=== PATIENT | male | born 1995 | race Caucasian/White ===

== ENCOUNTER 2022-03-25 12:55 | Inpatient (IN) | payer MEDICAID, OTHER ==
[~2022-03-25] VITALS: Ht 170.2 cm; Wt 59.1 kg
[~2022-03-25 12:55] MED LIST: AZIT-104 PO; RISP2TAB86 PO
[2022-03-25] MEDS ORDERED: HALOPERIDOL 5 MG TABLET PO ONE (15:00)
[2022-03-25] MEDS ORDERED: DiphenhydrAMINE HCL 50 MG CAPSULE PO ONE (15:00)
[2022-03-25] MEDS ORDERED: LORazepam 2 MG TABLET PO ONE (15:00)
[2022-03-25 15:28] LABS: AMPHET/METH SCREEN,URINE POSITIVE (NEGATIVE); BARBITURATE SCREEN, URINE NEGATIVE (NEGATIVE); BENZODIAZEPINES SCREEN,URINE NEGATIVE (NEGATIVE); CANNABINOID SCREEN,URINE POSITIVE (NEGATIVE); COCAINE SCREEN,URINE POSITIVE (NEGATIVE); METHADONE SCREEN, URINE NEGATIVE (NEGATIVE); OPIATE SCREEN,URINE NEGATIVE (NEGATIVE)
[2022-03-25 15:29] LABS: PHENCYCLIDINE SCREEN,URINE NEGATIVE (NEGATIVE)
[2022-03-25] MEDS ORDERED: LORazepam 2 MG TABLET PO PRN (15:45)
[2022-03-25] MEDS ORDERED: ZOLPIDEM TARTRATE 10 MG TABLET PO PRN (15:45)
[2022-03-25] MEDS ORDERED: HALOPERIDOL 5 MG TABLET PO PRN (15:45)
[2022-03-25 16:31] LABS: COVID AG,FIA SOURCE NASOPHARYNGEAL
[2022-03-25 16:32] LABS: BASOPHILS % (AUTO) 1.4 % (0.0-2.0); EOSINOPHILS % (AUTO) 2.3 % (1.0-6.0); HEMATOCRIT 41.6 % (41-53); LYMPHOCYTES # (AUTO) 2.8 K/uL (1.0-4.8); MEAN CORPUSCULAR HEMOGLOBIN 28.6 pg (26.0-34.0); MEAN CORPUSCULAR HGB CONC 33.6 G/dL (31.0-37.0); MEAN CORPUSCULAR VOLUME 85 fL (80-100); MONOCYTES # (AUTO) 0.6 K/uL (0.1-1.0); MONOCYTES % (AUTO) 6.1 % (2.0-9.0); NEUTROPHILS # (AUTO) 5.9 K/uL (1.8-7.7); NEUTROPHILS % (AUTO) 61.2 % (40.0-70.0); PLATELET COUNT (AUTO) 450 K/uL (150-450); RED BLOOD CELL COUNT(AUTO) 4.89 MIL/uL (4.50-5.90); RED CELL DISTRIBUTION WIDTH 14.1 % (11.5-14.5)
[2022-03-25 16:44] LABS: ANION GAP 4 mmol/L (8-16); CALCIUM, TOTAL 8.9 mg/dL (8.8-10.5); CARBON DIOXIDE 31 mmol/L (22-29); CHLORIDE 102 mmol/L (98-107); CREATININE 1.04 mg/dL (0.60-1.30); GLOMERULAR FILTR. RATE CALC > 60 mL/min (>60); GLUCOSE,RANDOM 84 mg/dL (70-110); POTASSIUM 4.2 mmol/L (3.5-5.1); SODIUM SERUM 137 mmol/L (136-145); UREA NITROGEN, BLOOD 10 mg/dL (7-18)
[2022-03-25 16:57] LABS: ALANINE AMINOTRANSFERASE 30 U/L (12-78); ALBUMIN 3.8 g/dL (3.4-5.0); ALKALINE PHOSPHATASE 82 U/L (46-116); ASPARTATE AMINOTRANSFERASE 18 U/L (15-37); BILIRUBIN,TOTAL 0.2 mg/dL (0.1-1.0); TOTAL PROTEIN, SERUM 7.5 g/dL (6.4-8.2)
[2022-03-25 19:05] VITALS: BP 112/71
[2022-03-26] MEDS ORDERED: INFLUENZA VIRUS VACCINE QVS 2022-23 (6MO+)/PF 60 MCG/0.5 ML SYRINGE IM. ONE (00:30)
[2022-03-26] MEDS ORDERED: ONDANSETRON HCL 4 MG TABLET PO PRN (06:45)
[2022-03-26] MEDS ORDERED: ALBUTEROL SULFATE HFA 90 MCG/PUFF 8 GM INHALER IH PRN (06:45)
[2022-03-26] MEDS ORDERED: NICOTINE 14 MG/24 HOUR PATCH TD PRN (06:45)
[2022-03-26] MEDS ORDERED: ACETAMINOPHEN 325 MG TABLET PO PRN (06:45)
[2022-03-26] MEDS ORDERED: LOPERAMIDE HCL 2 MG CAPSULE PO PRN (06:45)
[2022-03-26] MEDS ORDERED: PETROLATUM,WHITE 28 GM JELLY TP PRN (06:45)
[2022-03-26] MEDS ORDERED: CloNIDine HCL 0.1 MG TABLET PO PRN (06:45)
[2022-03-26] MEDS ORDERED: IBUPROFEN 400 MG TABLET PO PRN (06:45)
[2022-03-26] MEDS ORDERED: MAG HYDROX/AL HYDROX/SIMETH ES 30 ML SUSPENSION UDCUP PO PRN (06:45)
[2022-03-26] MEDS ORDERED: DOCUSATE SODIUM 100 MG CAPSULE PO PRN (06:45)
[2022-03-26] MEDS ORDERED: GuaiFENesin/D-METHORPHAN [SUGAR-FREE] 200-20MG/10 ML SYRUP UDCUP PO PRN (06:45)
[2022-03-26] MEDS ORDERED: MAGNESIUM HYDROXIDE SUSPENSION 30 ML UDCUP PO PRN (06:45)
[2022-03-26 08:18] VITALS: BP 109/71
[2022-03-26] MEDS: RisperiDONE 2 MG TABLET PO SCH ×2 (13:03→20:55)
[2022-03-26 20:28] VITALS: BP 106/65
[2022-03-27 08:13] VITALS: BP 118/72
[2022-03-27] MEDS: RisperiDONE 2 MG TABLET PO SCH ×2 (09:07→20:54)
[2022-03-27 20:14] VITALS: BP 120/69
[2022-03-28 08:08] VITALS: BP 121/67
[2022-03-28] MEDS: RisperiDONE 2 MG TABLET PO SCH ×2 (08:26→20:08)
[2022-03-28 20:08] VITALS: BP 126/68
[2022-03-29 08:04] VITALS: BP 125/67
[2022-03-29] MEDS: RisperiDONE 2 MG TABLET PO SCH ×2 (08:14→20:09)
[2022-03-29 20:05] VITALS: BP 128/80
[2022-03-30] MEDS: RisperiDONE 2 MG TABLET PO SCH ×2 (08:21→20:07)
[2022-03-30 08:56] VITALS: BP 128/68
[2022-03-30 21:04] VITALS: BP 100/55
[2022-03-31] MEDS: RisperiDONE 2 MG TABLET PO SCH ×2 (08:05→20:19)
[2022-03-31 08:45] VITALS: BP 111/68
[2022-03-31 09:36] LABS: GLUCOMETER DEV NAME(LOC) POC.BV
[2022-03-31 20:13] VITALS: BP 104/65
[2022-04-01] MEDS: RisperiDONE 2 MG TABLET PO SCH (08:08)
[2022-04-01 08:17] VITALS: BP 100/62
[2022-04-01] MEDS ORDERED: RISP2TAB86 PO (17:15)
== END 2022-04-01 15:52 | disposition home or self-care (01) | DRG 753 ==
LOC: EMS 12:58 → B3A 17:08
PROVIDERS: ADMIT Psychiatry & Neurology Child & Adolescent Psychiatry; ATTEND Psychiatry & Neurology Child & Adolescent Psychiatry
DX: F31.9 Bipolar disorder, unspecified (principal); R45.851 Suicidal ideations; F10.10 Alcohol abuse, uncomplicated; G47.00 Insomnia, unspecified; Y90.9 Presence of alcohol in blood, level not specified; Z20.822 Contact with and (suspected) exposure to COVID-19; F19.10 Other psychoactive substance abuse, uncomplicated; F12.90 Cannabis use, unspecified, uncomplicated; F14.90 Cocaine use, unspecified, uncomplicated; Z59.00 Homelessness unspecified
CPT/HCPCS: 80053; 85025; 99285; G0480